=== PATIENT | male | born 1945 | race Caucasian/White ===

== ENCOUNTER 2017-06-21 12:37 | Observation (INO) | payer MEDICARE, OTHER ==
[~2017-06-21] VITALS: Ht 170.2 cm; Wt 80.0 kg
[~2017-06-21 12:37] MED LIST: DEXAMETHASONE SOD PHOS 4 MG/ML VIAL IV ONE; GLYCOPYRROLATE 1 MG/5 ML SYRINGE IV PUSH ONE; LIDOCAINE HCL 1% PF 5 ML AMPULE OTHER ONE; PROPOFOL 200 MG/20 ML AMP IV ONE; ceFAZolin INJ 1,000 MG VIAL IV ONE; ePHEDrine/NS 25 MG/5 ML SYR IV ONE
[2017-06-21 12:46] VITALS: BP 150/84; PULSE 94; RESP 19; TEMP 98.3; O2SAT 94
[2017-06-21] MEDS ORDERED: BUPR100T4 PO (12:55)
[2017-06-21] MEDS ORDERED: OMEP20TA PO (12:55)
[2017-06-21] MEDS ORDERED: LOSA100T PO (12:55)
--- NOTE | 2017-06-21 13:28 | PD ---
Physical Exam Date Seen by Provider: Jun 21, 2017 Time Seen by Provider: 13:26 Narrative 72-year-old male presents the emergency department via ambulance with nail gun injury to the left upper anterior thigh/hip while working on his home. Patient states it was approximately [address] was galvanized steel. He states he might be 2 nails, but is unsure. There is no visible foreign body on the outer surface. Patient has normal sensation, and pulses distally. He is localized to the left upper anterior thigh/hip. Pain is worse with trying to ambulate or bear weight. Patient is unsure of his last tetanus shot. Last ate at 7 AM. Pain is currently 5 out of 10 if not moving. He has no known drug allergies. Data Data Last Documented VS Vital Signs Date Time Temp Pulse Resp B/P (MAP) Pulse Ox O2 Delivery O2 Flow Rate FiO2 06/21/17 14:40 18 97 Room Air 06/21/17 12:50 2.00 06/21/17 12:46 98.3 94 150/84 (106) Orders Orders Basic Metabolic Panel (Bmp) (06/21/17 13:24) Complete Blood Count With Diff (06/21/17 13:24) Prothrombin Time / Inr (Pt) (06/21/17 13:24) Act Partial Throm Time (Ptt) (06/21/17 13:24) Iv Access Insert/Monitor (06/21/17 13:24) Ecg Monitoring (06/21/17 13:24) Oximetry (06/21/17 13:24) NPO (06/21/17 13:24) Sodium Chloride 0.9% Flush (Ns Flush) (06/21/17 13:30) Electrocardiogram (06/21/17 13:24) Chest, Single Ap (06/21/17 13:24) Tetanus/Diphtheria Tox Adult (Tetanus/Di (06/21/17 13:30) Hip, Uni(Ap&Lat) W Ap Pelvis (06/21/17 13:24) Cefazolin 2 Gm Premix (Ancef 2 Gm Premix (06/21/17 14:15) Femur (Ap & Lat/2vws) (06/21/17 14:18) Labs Laboratory Tests Test 06/21/17 11:45 White Blood Count 8.9 TH/MM3 Red Blood Count 5.55 MIL/MM3 Hemoglobin 16.2 GM/DL Hematocrit 48.6 % Mean Corpuscular Volume 87.5 FL Mean Corpuscular Hemoglobin 29.3 PG Mean Corpuscular Hemoglobin Concent 33.4 % Red Cell Distribution Width 16.1 % Platelet Count 151 TH/MM3 Mean Platelet Volume 8.9 FL Neutrophils (%) (Auto) 79.8 % Lymphocytes (%) (Auto) 9.5 % Monocytes (%) (Auto) 9.7 % Eosinophils (%) (Auto) 0.5 % Basophils (%) (Auto) 0.5 % Neutrophils # (Auto) 7.1 TH/MM3 Lymphocytes # (Auto) 0.8 TH/MM3 Monocytes # (Auto) 0.9 TH/MM3 Eosinophils # (Auto) 0.0 TH/MM3 Basophils # (Auto) 0.0 TH/MM3 CBC Comment DIFF FINAL Differential Comment Prothrombin Time 10.8 SEC Prothromb Time International Ratio 1.0 RATIO Activated Partial Thromboplast Time 22.8 SEC Blood Urea Nitrogen 18 MG/DL Creatinine 1.09 MG/DL Random Glucose 98 MG/DL Calcium Level 9.1 MG/DL Sodium Level 138 MEQ/L Potassium Level 3.9 MEQ/L Chloride Level 104 MEQ/L Carbon Dioxide Level 25.6 MEQ/L Anion Gap 8 MEQ/L Estimat Glomerular Filtration Rate 66 ML/MIN MDM Medical Record Reviewed: Yes Supervised Visit with BRIAN: Yes Narrative Course Patient is medically stable at time of exam when seen in the ambulance [facility]. Patient is given tetanus. X-ray of the left hip and pelvis is ordered. IV access is maintained and labs are ordered including CBC, CMP, coagulation studies. CBC is unremarkable. EKG and chest x-ray was ordered for possible preop purposes. X-ray of the pelvis show obvious foreign body in the soft tissues. No mention of bony involvement is noted. Call was placed to Dr. Duff, the radiologist and he recommends a femur lateral view to determine if the nail is indeed in the bone as it was not determined on the previous x-rays. Patient is kept nothing by mouth. Patient is awaiting medical bed placement. Patient is moved to [place] [id number]. Patient discussed with Fidel KAPADIA. Condition: Stable Alex Worthington Jun 21, 2017 13:28
[2017-06-21] MEDS ORDERED: TETANUS/DIPHTHERIA TOXOID ADULT 0.5 ML VIAL IM ONE (13:30)
[2017-06-21] MEDS ORDERED: SODIUM CHLORIDE 0.9% FLUSH 10 ML FLUSH IV FLUSH PRN ×3 (13:30→19:15)
--- NOTE | 2017-06-21 14:13 | RADRPT ---
EXAM DATE/TIME: 06/21/2017 13:53 [facility] COMPARISON: No previous studies available for comparison. INDICATIONS : Shortness of breath. Patient shot a nail into his left leg. MEDICAL HISTORY : Hypertension. Gastroesophageal reflux disease. SURGICAL HISTORY : Cholecystectomy. Total knee replacement, right. ENCOUNTER: Initial ACUITY: 1 day PAIN SCORE: 0/10 LOCATION: Bilateral chest FINDINGS: A single view of the chest demonstrates the lungs to be symmetrically aerated without evidence of mas s, infiltrate or effusion. The cardiomediastinal contours are unremarkable. Osseous structures demo nstrate a small exostosis projecting off the distal left clavicle. CONCLUSION: 1. No acute cardiopulmonary findings. Jean Duff MD on June 21, 2017 at 14:06 Board Certified Radiologist. This report was verified electronically.
--- NOTE | 2017-06-21 14:14 | RADRPT ---
EXAM DATE/TIME: 06/21/2017 13:59 [facility] COMPARISON: CHEST SINGLE AP, June 21, 2017, 13:53. INDICATIONS : Foreign body. Patient shot a nail into his left leg. MEDICAL HISTORY : Hypertension. Gastroesophageal reflux disease. SURGICAL HISTORY : Total knee replacement, right. Cholecystectomy. ENCOUNTER: Initial ACUITY: 1 day PAIN SCORE: 10/10 LOCATION: Left hip. FINDINGS: The examination demonstrates a small radiodense foreign body projecting over the proximal left femur. This is in the subcutaneous soft tissues. The visualized osseous structures are intact. CONCLUSION: 1. Small radiodense foreign body in the subcutaneous soft tissues of the left upper thigh. 2. The osseous structures are intact. Jena Duff MD on June 21, 2017 at 14:11 Board Certified Radiologist. This report was verified electronically.
[2017-06-21] MEDS ORDERED: ceFAZolin 2 GM PREMIX 50 ML IV ONE (14:15)
[2017-06-21 14:23] LABS: AUTOMATED NEUTROPHIL # 7.1 TH/MM3 (1.8-7.7); BASOPHIL % 0.5 % (0.0-2.0); EOSINOPHIL % 0.5 % (0.0-4.0); HEMATOCRIT 48.6 % (39.0-51.0); HEMO FLAGS DIFF FINAL; LYMPH % 9.5 % (9.0-44.0); LYMPHOCYTE # 0.8 TH/MM3 (1.0-4.8); MEAN CELL VOLUME 87.5 FL (80.0-100.0); MEAN CORPUSCULAR HEMOGLOBIN 29.3 PG (27.0-34.0); MEAN CORPUSCULAR HGB CONC 33.4 % (32.0-36.0); MONO % 9.7 % (0.0-8.0); NEUT % 79.8 % (16.0-70.0); PLATELET COUNT 151 TH/MM3 (150-450); RED BLOOD COUNT 5.55 MIL/MM3 (4.50-5.90); RED CELL DISTRIBUTION WIDTH 16.1 % (11.6-17.2); WHITE BLOOD COUNT 8.9 TH/MM3 (4.0-11.0)
[2017-06-21 14:38] LABS: APTT (PATIENT) 22.8 SEC (24.3-30.1); PROTHROMBIN TIME - PATIENT 10.8 SEC (9.8-11.6)
[2017-06-21 14:40] VITALS: RESP 18; O2SAT 97
[2017-06-21 14:46] LABS: BICARBONATE 25.6 MEQ/L (21.0-32.0); POTASSIUM 3.9 MEQ/L (3.5-5.1)
--- NOTE | 2017-06-21 14:46 | PD ---
HPI Chief Complaint: Injury Time Seen by Provider: 14:46 Travel History International Travel<30 days: No Contact w/Intl Traveler<30days: No Traveled to known affect area: No History of Present Illness HPI This patient was initially evaluated by Ortiz Worthington PA-C. Please see his note for those details. 72 YO M presents to the ED via EMS for evaluation after accidentally firing a nail gun into his left hip. The patient has been ambulatory since the event. He endorses 10/10 pain with attempted ROM, pain is 5/10 at rest. He denies numbness , tingling, weakness of the extremity. Tetanus has been updated, labs acquired, Ancef administered. Xrays reveal FB, lateral view pending. Patient has been ordered NPO. Last meal 7 am. PFSH Past Medical History Depression: Yes GERD: Yes Hypertension: Yes Tetanus Vaccination: > 5 Years Influenza Vaccination: No Past Surgical History Cholecystectomy: Yes Social History Alcohol Use: No Tobacco Use: No Substance Use: No Allergies-Medications (Allergen,Severity, Reaction): Coded Allergies: No Known Allergies (Unverified , 06/21/17) Reported Meds & Prescriptions Reported Meds & Active Scripts Active Reported Bupropion HCl 100 Mg Tab 100 Mg PO HS Losartan (Losartan Potassium) 100 Mg Tab 100 Mg PO DAILY Omeprazole 20 Mg Tab 20 Mg PO DAILY Review of Systems Except as stated in HPI: all other systems reviewed are Neg Physical Exam Narrative GENERAL: Well-nourished, well-developed pleasant white male in no acute distress. SKIN: Focused skin assessment warm/dry. Single, 2 mm wound on the lateral aspect of the left hip without active bleeding. HEAD: Normocephalic. EYES: No scleral icterus. No injection or drainage. NECK: Supple, trachea midline. No JVD or lymphadenopathy. CARDIOVASCULAR: Regular rate and rhythm without murmurs, gallops, or rubs. RESPIRATORY: Breath sounds equal bilaterally. No accessory muscle use. GASTROINTESTINAL: Abdomen soft, non-tender, nondistended. MUSCULOSKELETAL: No cyanosis, or edema. FOCUSED LEFT LOWER EXTREMITY EXAM: 2+ DP pulse. Patient is able to wiggle the toes and flex and extend the ankle. Motion of the hip elicits pain. Neurovascularly intact distally. BACK: Nontender without obvious deformity. No CVA tenderness. Data Data Last Documented VS Vital Signs Date Time Temp Pulse Resp B/P (MAP) Pulse Ox O2 Delivery O2 Flow Rate FiO2 06/21/17 14:40 18 97 Room Air 06/21/17 12:50 2.00 06/21/17 12:46 98.3 94 150/84 (106) Orders Orders Basic Metabolic Panel (Bmp) (06/21/17 13:24) Complete Blood Count With Diff (06/21/17 13:24) Prothrombin Time / Inr (Pt) (06/21/17 13:24) Act Partial Throm Time (Ptt) (06/21/17 13:24) Iv Access Insert/Monitor (06/21/17 13:24) Ecg Monitoring (06/21/17 13:24) Oximetry (06/21/17 13:24) NPO (06/21/17 13:24) Sodium Chloride 0.9% Flush (Ns Flush) (06/21/17 13:30) Electrocardiogram (06/21/17 13:24) Chest, Single Ap (06/21/17 13:24) Tetanus/Diphtheria Tox Adult (Tetanus/Di (06/21/17 13:30) Hip, Uni(Ap&Lat) W Ap Pelvis (06/21/17 13:24) Cefazolin 2 Gm Premix (Ancef 2 Gm Premix (06/21/17 14:15) Morphine Inj (Morphine Inj) (06/21/17 15:00) Femur, One View (06/21/17 ) Admit Order (Ed Use Only) (06/21/17 17:03) Labs Laboratory Tests Test 06/21/17 11:45 White Blood Count 8.9 TH/MM3 Red Blood Count 5.55 MIL/MM3 Hemoglobin 16.2 GM/DL Hematocrit 48.6 % Mean Corpuscular Volume 87.5 FL Mean Corpuscular Hemoglobin 29.3 PG Mean Corpuscular Hemoglobin Concent 33.4 % Red Cell Distribution Width 16.1 % Platelet Count 151 TH/MM3 Mean Platelet Volume 8.9 FL Neutrophils (%) (Auto) 79.8 % Lymphocytes (%) (Auto) 9.5 % Monocytes (%) (Auto) 9.7 % Eosinophils (%) (Auto) 0.5 % Basophils (%) (Auto) 0.5 % Neutrophils # (Auto) 7.1 TH/MM3 Lymphocytes # (Auto) 0.8 TH/MM3 Monocytes # (Auto) 0.9 TH/MM3 Eosinophils # (Auto) 0.0 TH/MM3 Basophils # (Auto) 0.0 TH/MM3 CBC Comment DIFF FINAL Differential Comment Prothrombin Time 10.8 SEC Prothromb Time International Ratio 1.0 RATIO Activated Partial Thromboplast Time 22.8 SEC Blood Urea Nitrogen 18 MG/DL Creatinine 1.09 MG/DL Random Glucose 98 MG/DL Calcium Level 9.1 MG/DL Sodium Level 138 MEQ/L Potassium Level 3.9 MEQ/L Chloride Level 104 MEQ/L Carbon Dioxide Level 25.6 MEQ/L Anion Gap 8 MEQ/L Estimat Glomerular Filtration Rate 66 ML/MIN MDM Medical Decision Making Medical Screen Exam Complete: Yes Emergency Medical Condition: Yes Differential Diagnosis open fracture versus retained FB versus need for tetanus immunization versus other Narrative Course This patient was initially evaluated by Ortiz Worthington PA-C. Please see his note for those details. 72 YO M presents to the ED via EMS for evaluation after accidentally firing a nail gun into his left hip. The patient has been ambulatory since the event. He endorses 10/10 pain with attempted ROM, pain is 5/10 at rest. He denies numbness , tingling, weakness of the extremity. Tetanus has been updated, labs acquired, Ancef administered. Xrays reveal FB, lateral view pending. Patient has been ordered NPO. Last meal 7 am. Vitals reviewed. Physical exam reveals a single 2 mm puncture wound on the lateral aspect of the left hip without active bleeding. Patient has a palpable DP pulse and is neurovascularly intact distally. He was administered 4 mg of morphine IV. EKG rate 74, sinus rhythm. NH interval 177. QRS 128. QTC 393. RBBB. LAD. No acute ST changes. Reviewed by Dr. Montero. CXR: No acute cardiopulmonary disease. No concerning abnormalities of CBC, BMP, coags. Xrays reveal the nail is imbedded in the femur. I spoke with Dr. Mai,on-call orthopedist, who plans surgery tonight pending availability of the OR. The patient is agreeable to this plan. I spoke with Dr. Delvalle who agrees to accept the patient to the medicine service. Please see medicine and orthopedic notes for disposition. Condition: Stable Lorraine Taylor Jun 21, 2017 14:46
[2017-06-21] MEDS ORDERED: MORPHINE SULFATE 4 MG/ML INJ IV PUSH ONE (15:00)
--- NOTE | 2017-06-21 16:25 | RADRPT ---
EXAM DATE/TIME: 06/21/2017 15:36 [facility] COMPARISON: HIP LEFT (AP&LAT 2/3VWS) W AP PELVIS, June 21, 2017, 13:59. FEMUR LEFT (AP & LAT/2VWS), June 062016, 15:25. INDICATIONS : true lateral to rule out if foreign body is in the bone MEDICAL HISTORY : None. SURGICAL HISTORY : None. ENCOUNTER: Initial ACUITY: 1 day PAIN SCORE: 7/10 LOCATION: Left femur FINDINGS: A true lateral view of the left femur shows a metallic foreign body consistent with a nail overlying the proximal femoral metaphysis. On this and the AP view the nail projects over the bone therefore co ncerning for impaction within the bone. CONCLUSION: Foreign body felt to be within the bone. Sandoval Gutierres Jr., MD on June 21, 2017 at 16:21 Board Certified Radiologist. This report was verified electronically.
[2017-06-21] MEDS: SODIUM CHLOR 0.9% 1000 ML INJ 1,000 ML IV SCH (17:03)
[2017-06-21] MEDS ORDERED: ONDANSETRON HCL 4 MG/2 ML VIAL IVP PRN (17:15)
[2017-06-21] MEDS ORDERED: MAGNESIUM HYDROXIDE SUSP 30 ML CUP PO PRN (17:15)
[2017-06-21] MEDS ORDERED: ACETAMINOPHEN/HYDROcodone 325 MG/5 MG TAB PO PRN ×2 (17:15→19:15)
[2017-06-21] MEDS ORDERED: ACETAMINOPHEN/HYDROcodone 325 MG/10 MG TAB PO PRN (17:15)
[2017-06-21] MEDS ORDERED: NALOXONE HCL 0.4 MG/ML AMP IV PUSH PRN (17:15)
[2017-06-21] MEDS ORDERED: ACETAMINOPHEN 1000 MG/100 ML 0 ML IV ONE (17:49)
[2017-06-21] MEDS ORDERED: GENTAMICIN SULFATE 80 MG/2 ML VIAL ONE (17:55)
--- NOTE | 2017-06-21 18:05 | HHI.HP ---
HPI Service [facility] Primary [facility] Physician Unknown Admission Diagnosis foreign body left femur Diagnoses: Chief Complaint: Left femur shot accidentally by nail gun Travel History International Travel<30 Days: No Contact w/Intl Traveler <30 Da: No Traveled to Known Affected Are: No History of Present Illness Written by Enid Garcia, acting as scribe for Dr. Delvalle on 06/21/17 at 17: 49. Patient is a 72-year-old male with primary medical history of hypertension, GERD , depression who came into the hospital after accidentally shooting his left hip with a nail gun while doing his fence. Patient states that the nail gun has been mishooting and he was trying to fix it and he accidentally turned around the wrong way hitting his left hip. He thought that he did not hit himself because he did not feel anything but when he checked his left hip area she saw the dimpling on his skin and skin became swollen. X-ray showed foreign body felt to be within the bone. Hip and pelvis x-ray showed 1. Small radiodense foreign body in the subcutaneous soft tissue of the left upper thigh. 2. Nausea structures are intact. Patient states that after he was given morphine he is doing well with pain management. Pain is not described as 3/10 nonradiating, aggravated by movement , relieved by pain medication. Denies SOB/ dyspnea. Denies chest pain, palpitations, headaches, dizziness. Denies fevers, chills, n/v/d. Review of Systems Except as stated in HPI: all other systems reviewed are Neg Past Family Social History Past Medical History HTN GERD Depression Low testosterone Past Surgical History Right knee replacement Cholecystectomy Reported Medications Reported Meds & Active Scripts Active Reported Bupropion HCl 100 Mg Tab 100 Mg PO HS Losartan (Losartan Potassium) 100 Mg Tab 100 Mg PO DAILY Omeprazole 20 Mg Tab 20 Mg PO DAILY Allergies: Coded Allergies: No Known Allergies (Unverified , 06/21/17) Active Ordered Medications Current Medications Medications (Trade) Dose Ordered Sig/Katelynn Route Start Time Stop Time Status Last Admin (NS Flush) 2 ml UNSCH PRN IV FLUSH 06/21/17 13:30 06/21/17 15:00 Sodium Chloride 1,000 ml @ 100 mls/hr Q10H IV 06/21/17 17:03 (NS Flush) 2 ml UNSCH PRN IV FLUSH 06/21/17 17:15 (NS Flush) 2 ml BID IV FLUSH 06/21/17 21:00 (Zofran Inj) 4 mg Q6H PRN IVP 06/21/17 17:15 (Whitman 5-325 Mg) 1 tab Q4H PRN PO 06/21/17 17:15 (Whitman 10-325 Mg) 1 tab Q4H PRN PO 06/21/17 17:15 (Narcan Inj) 0.4 mg UNSCH PRN IV PUSH 06/21/17 17:15 (Milk Of Magnlucy Liq) 30 ml Q12H PRN PO 06/21/17 17:15 Family History Family history of kidney problems, stroke, heart disease where in he believes that it is because of not taking care of themselves. Denies any family history of cancer, blood disorders Social History Occasional alcohol use Former smoker but has not smoked since 1975 Denies any illicit drug use Physical Exam Vital Signs Vital Signs Date Time Temp Pulse Resp B/P (MAP) Pulse Ox O2 Delivery O2 Flow Rate FiO2 06/21/17 14:40 18 97 Room Air 06/21/17 12:50 Nasal Cannula 2.00 06/21/17 12:46 98.3 94 19 150/84 (106) 94 Physical Exam GENERAL: This is a well-nourished, well-developed patient, in no apparent distress. SKIN: No rashes, ecchymoses or lesions. Cool and dry. HEAD: Normocephalic. No temporal or scalp tenderness. EYES: Pupils equal round and reactive. Extraocular motions intact. No scleral icterus. No injection or drainage. ENT: Nose without bleeding. Throat without erythema. Uvula midline. Airway patent. NECK: Trachea midline. Supple. CARDIOVASCULAR: Regular rate and rhythm without murmurs, gallops, or rubs. RESPIRATORY: Clear to auscultation. Breath sounds equal bilaterally. No wheezes , rales, or rhonchi. GASTROINTESTINAL: Abdomen soft, non-tender, nondistended. Bowel sounds active 4. MUSCULOSKELETAL: Extremities without clubbing, cyanosis, left hip are with trace edema, mild ecchymoses. No joint tenderness, effusion, or edema noted. NEUROLOGICAL: Awake and alert. Cranial nerves II through XII intact. Motor and sensory grossly within normal limits. Normal speech. Laboratory Laboratory Tests Test 06/21/17 11:45 White Blood Count 8.9 Red Blood Count 5.55 Hemoglobin 16.2 Hematocrit 48.6 Mean Corpuscular Volume 87.5 Mean Corpuscular Hemoglobin 29.3 Mean Corpuscular Hemoglobin Concent 33.4 Red Cell Distribution Width 16.1 Platelet Count 151 Mean Platelet Volume 8.9 Neutrophils (%) (Auto) 79.8 Lymphocytes (%) (Auto) 9.5 Monocytes (%) (Auto) 9.7 Eosinophils (%) (Auto) 0.5 Basophils (%) (Auto) 0.5 Neutrophils # (Auto) 7.1 Lymphocytes # (Auto) 0.8 Monocytes # (Auto) 0.9 Eosinophils # (Auto) 0.0 Basophils # (Auto) 0.0 CBC Comment DIFF FINAL Differential Comment Prothrombin Time 10.8 Prothromb Time International Ratio 1.0 Activated Partial Thromboplast Time 22.8 Blood Urea Nitrogen 18 Creatinine 1.09 Random Glucose 98 Calcium Level 9.1 Sodium Level 138 Potassium Level 3.9 Chloride Level 104 Carbon Dioxide Level 25.6 Anion Gap 8 Estimat Glomerular Filtration Rate 66 Result Diagram: 06/21/17 1145 06/21/17 1145 Imaging Last Impressions Hip and Pelvis X-Ray 06/21/17 1324 Signed Impressions: Service Date/Time: Wednesday, June 21, 2017 13:59 - CONCLUSION: 1. Small radiodense foreign body in the subcutaneous soft tissues of the left upper thigh. 2. The osseous structures are intact. Jean Duff MD Chest X-Ray 06/21/17 1324 Signed Impressions: Service Date/Time: Wednesday, June 21, 2017 13:53 - CONCLUSION: 1. No acute cardiopulmonary findings. Jean Duff MD Femur X-Ray 06/21/17 0000 Signed Impressions: Service Date/Time: Wednesday, June 21, 2017 15:36 - CONCLUSION: Foreign body felt to be within the bone. MD Maria Victoria Rutherford Jr. VTE Risk Assessment Caprini VTE Risk Assessment: Mod/High Risk (score >= 2) Caprini Risk Assessment Model Point Value = 1 Point Value = 2 Point Value = 3 Point Value = 5 Age 41-60 Minor surgery BMI > 25 kg/m2 Swollen legs Varicose veins or History of unexplained or recurrent spontaneous Oral contraceptives or hormone replacement Sepsis (< 1 month) Serious lung disease, including pneumonia (< 1 month) Abnormal pulmonary function Acute myocardial infarction Congestive heart failure (< 1 month) History of inflammatory bowel disease Medical patient at bed rest Age 61-74 Arthroscopic surgery Major open surgery (> 45 min) Laparoscopic surgery (> 45 min) Malignancy Confined to bed (> 72 hours) Immobilizing plaster cast Central venous access Age >= 75 History of VTE Family history of VTE Factor V Leiden Prothrombin [id number] Lupus anticoagulant Anticardiolipin antibodies Elevated serum homocysteine Heparin-induced thrombocytopenia Other congenital or acquired thrombophilia Stroke (< 1 month) Elective arthroplasty Hip, pelvis, or leg fracture Acute spinal cord injury (< 1 month) Prophylaxis Regimen Total Risk Factor Score Risk Level Prophylaxis Regimen 0-1 Low Early ambulation 2 Moderate Order ONE of the following: *Sequential Compression Device (SCD) *Heparin 5000 units SQ BID 3-4 Higher Order ONE of the following medications: *Heparin 5000 units SQ TID *Enoxaparin/Lovenox 40 mg SQ daily (WT < 150 kg, CrCl > 30 mL/min) *Enoxaparin/Lovenox 30 mg SQ daily (WT < 150 kg, CrCl > 10-29 mL/min) *Enoxaparin/Lovenox 30 mg SQ BID (WT < 150 kg, CrCl > 30 mL/min) AND/OR *Sequential Compression Device (SCD) 5 or more Highest Order ONE of the following medications: *Heparin 5000 units SQ TID (Preferred with Epidurals) *Enoxaparin/Lovenox 40 mg SQ daily (WT < 150 kg, CrCl > 30 mL/min) *Enoxaparin/Lovenox 30 mg SQ daily (WT < 150 kg, CrCl > 10-29 mL/min) *Enoxaparin/Lovenox 30 mg SQ BID (WT < 150 kg, CrCl > 30 mL/min) AND *Sequential Compression Device (SCD) Assessment and Plan Problem List: (1) HTN (hypertension) ICD Code: I10 - Essential (primary) hypertension Status: Chronic (2) GERD (gastroesophageal reflux disease) ICD Code: K21.9 - Gastro-esophageal reflux disease without esophagitis Status: Chronic (3) Depression ICD Code: F32.9 - Major depressive disorder, single episode, unspecified Status: Chronic (4) Foreign body in left lower extremity ICD Code: S80.852A - Superficial foreign body, left lower leg, initial encounter Status: Acute Assessment and Plan Patient is a 72-year-old male with primary medical history of hypertension, GERD , depression who came into the hospital after accidentally shooting his left hip with a nail gun while doing his fence. Foreign body in the Left Femur - Accidental shooting of nail gun on the left femur - Tetanus shot - IV Cefazolin - Morphine IV for pain - Consulted Dr. Mai for surgical intervention - NPO for now if procedure to take place HTN - Monitor BP trend - May restart meds in AM GERD - Pantoprazole Depression - May restart home meds tomorrow DVT Prop SCD Code Status Full Code Discussed Condition With Patient, , ED Attending Enid Sharp Jun 21, 2017 18:04
[2017-06-21] MEDS ORDERED: ACETAMINOPHEN 1000 MG/100 ML 100 ML IV ONE (18:23)
[2017-06-21] MEDS ORDERED: ceFAZolin INJ 1,000 MG VIAL IV ONE (18:43)
[2017-06-21] MEDS ORDERED: GENTAMICIN SULFATE 80 MG/2 ML VIAL IV ONE (18:45)
--- NOTE | 2017-06-21 19:06 | HHI.PR ---
cc: Cecile Mai MD Immediate Post Op Note Procedure Date: Jun 21, 2017 Pre Op Diagnosis: Foreign body left thigh and femur Post Op Diagnosis: as above Surgeon: Cecile Mai Sales Merchandiser(s): food service assistant Procedure: Removal of foreign body left thigh and femur Findings: Full finishing nail removed. Complications: none Specimen(s) removed: finishing nail Estimated blood loss: none Anesthesia: General Drains: None Patient to: PACU Patient Condition: Good Date/Time of Procedure: SEE SURGICAL CARE RECORD Cecile Mai MD Jun 21, 2017 19:06
[2017-06-21] MEDS ORDERED: DO NOT ADM ANY ANTICOAGULANT DRUGS PRN (19:10)
[2017-06-21] MEDS ORDERED: HYDR-3516 PO (19:10)
[2017-06-21] MEDS ORDERED: DOXY100C PO (19:10)
--- NOTE | 2017-06-21 19:13 | HHI.DS ---
Discharge Summary Admission Date Jun 21, 2017 at 17:05 Discharge Date: Jun 21, 2017 Admitting Diagnosis Foreign body left thigh Diagnosis: (1) Foreign body in left lower extremity Diagnosis: Principal ICD Codes: S80.852A - Superficial foreign body, left lower leg, initial encounter Status: Acute Procedures Removal of foreign body left thigh/femur Brief History This is a 72 year old male patient with finishing nail shot into anterior lateral thigh this afternoon when trying to build fence. Denies other injuries. No numbness, tingling, weakness. Patient received antibiotics and tetanus in the ED. Taken to OR for removal of foreign body without complication. CBC/BMP: 06/21/17 1145 06/21/17 1145 Significant Findings Laboratory Tests Test 06/21/17 11:45 Neutrophils (%) (Auto) 79.8 % (16.0-70.0) Monocytes (%) (Auto) 9.7 % (0.0-8.0) Lymphocytes # (Auto) 0.8 TH/MM3 (1.0-4.8) Activated Partial Thromboplast Time 22.8 SEC (24.3-30.1) Estimat Glomerular Filtration Rate 66 ML/MIN (>89) Hospital Course OR for removal of foreign body without complication. Plan for discharge home from PACU Pt Condition on Discharge: Good Discharge Disposition: Discharge Home Discharge Instructions Diet Instructions: As Tolerated, No Restrictions Activities You Can Perform: Weight Bearing as Cecile Meehan MD Jun 21, 2017 19:13
[2017-06-21] MEDS ORDERED: MORPHINE SULFATE 4 MG/ML INJ IV PUSH PRN (19:15)
--- NOTE | 2017-06-21 19:39 | RADRPT ---
EXAM DATE/TIME: 06/21/2017 18:55 [facility] COMPARISON: HIP LEFT (AP&LAT 2/3VWS) W AP PELVIS, June 21, 2017, 13:59. INDICATIONS : Left hip foreign body removal. OR. MEDICAL HISTORY : None. SURGICAL HISTORY : None. ENCOUNTER: Initial ACUITY: 1 day PAIN SCORE: Non-responsive. LOCATION: Left hip FINDINGS: Examination of the hip demonstrates no evidence of fracture or dislocation. Bone mineralization is n ormal. No foreign body is identified. CONCLUSION: Negative examination specifically the linear metallic foreign body in soft tissues is absent Jerel Car MD on June 21, 2017 at 19:37 Board Certified Radiologist. This report was verified electronically.
[2017-06-21] MEDS ORDERED: BUPIVACAINE/EPINEPHRINE 0.5% PF 10 ML VIAL ONE (20:20)
[2017-06-21] MEDS ORDERED: SODIUM CHLORIDE 0.9% FLUSH 10 ML FLUSH IV FLUSH SCH ×2 (21:00)
[2017-06-21] MEDS ORDERED: ceFAZolin 1,000 MG/NS 100 ML IV ONE ×2 (21:00)
[2017-06-21 21:28] VITALS: BP 140/79; PULSE 66; RESP 18; TEMP 97.9; O2SAT 95
[2017-06-22 00:23] VITALS: BP 131/60; PULSE 66; RESP 18; TEMP 97.9; O2SAT 96
[2017-06-22] MEDS: SODIUM CHLOR 0.9% 1000 ML INJ 1,000 ML IV SCH (02:43)
[2017-06-22 02:59] VITALS: BP 128/69; PULSE 64; RESP 18; TEMP 97.7; O2SAT 95
[2017-06-22 08:00] VITALS: BP 139/68; PULSE 70; RESP 20; TEMP 98.3; O2SAT 94
--- NOTE | 2017-06-22 08:40 | HHI.PR ---
Subjective Remarks Follow up for left hip foreign body s/p removal. The patient reports feeling better today. He was able to ambulate his room without difficulty. He reports some mild soreness at the site of the injury. Denies fevers/chills. Some bloody drainage on bandage overnight. He has no other medical complaints at this time. Objective Vitals Vital Signs Date Time Temp Pulse Resp B/P (MAP) Pulse Ox O2 Delivery O2 Flow Rate FiO2 06/22/17 08:00 98.3 70 20 139/68 (91) 94 06/22/17 02:59 97.7 64 18 128/69 (88) 95 06/22/17 00:23 97.9 66 18 131/60 (83) 96 06/21/17 21:28 97.9 66 18 140/79 (99) 95 06/21/17 20:15 83 18 146/78 (100) 96 Room Air 06/21/17 20:02 75 20 156/78 (104) 96 Room Air 06/21/17 19:30 79 20 161/83 (109) 99 Room Air 06/21/17 19:15 82 18 161/76 (104) 100 Nasal Cannula 2 06/21/17 19:15 97.7 84 16 168/85 (112) 99 Nasal Cannula 2 06/21/17 14:40 18 97 Room Air 06/21/17 12:50 Nasal Cannula 2.00 06/21/17 12:46 98.3 94 19 150/84 (106) 94 I/O 06/21/17 06/21/17 06/21/17 06/22/17 06/22/17 06/22/17 07:00 15:00 23:00 07:00 15:00 23:00 Intake Total 900 ml Output Total 5 ml Balance 895 ml Intake IV Total 200 ml Other 700 ml Output Estimated Blood Loss 5 ml Result Diagram: 06/21/17 1145 06/21/17 1145 Imaging Last Impressions Hip and Pelvis X-Ray 06/21/171323 Signed Impressions: Service Date/Time: Wednesday, June 21, 2017 13:59 - CONCLUSION: 1. Small radiodense foreign body in the subcutaneous soft tissues of the left upper thigh. 2. The osseous structures are intact. Jean Duff MD Chest X-Ray 06/21/171323 Signed Impressions: Service Date/Time: Wednesday, June 21, 2017 13:53 - CONCLUSION: 1. No acute cardiopulmonary findings. Jean Duff MD Hip X-Ray 06/21/17 0000 Signed Impressions: Service Date/Time: Wednesday, June 21, 2017 18:55 - CONCLUSION: Negative examination specifically the linear metallic foreign body in soft tissues is absent Jerel Car MD Femur X-Ray 06/21/17 0000 Signed Impressions: Service Date/Time: Wednesday, June 21, 2017 15:36 - CONCLUSION: Foreign body felt to be within the bone. Sandoval Gutierres Jr., MD Objective Remarks GENERAL: Well-nourished, well-developed pleasant elderly male patient in [place]. SKIN: Warm and dry. No rash. HEENT: Normocephalic. Atraumatic.Pupils equal and round. Mucous membranes pink and moist. CARDIOVASCULAR: Regular rate and rhythm. S1, S2 noted. No murmur appreciated. RESPIRATORY: No accessory muscle use. Clear to auscultation. Breath sounds equal bilaterally. GASTROINTESTINAL: Abdomen soft, non-tender, nondistended. Normoactive bowel sounds x4. MUSCULOSKELETAL: No obvious deformities. Extremities without clubbing, cyanosis , or edema. Left anterolateral hip with puncture wound, covered with dressing, CDI. NEUROLOGICAL: Awake and alert. No obvious cranial nerve deficits. Motor grossly within normal limits. Normal speech. PSYCHIATRIC: Appropriate mood and affect; insight and judgment normal. Medications and IVs Current Medications Medications (Trade) Dose Ordered Sig/Katelynn Route Start Time Stop Time Status Last Admin Sodium Chloride 1,000 ml @ 100 mls/hr Q10H IV 06/21/17 17:03 (Zofran Inj) 4 mg Q6H PRN IVP 06/21/17 17:15 ([place] 10-325 Mg) 1 tab Q4H PRN PO 06/21/17 17:15 (Narcan Inj) 0.4 mg UNSCH PRN IV PUSH 06/21/17 17:15 (Milk Of Magnesia Liq) 30 ml Q12H PRN PO 06/21/17 17:15 (NS Flush) 2 ml BID IV FLUSH 06/21/17 21:00 06/21/17 21:25 (NS Flush) 2 ml UNSCH PRN IV FLUSH 06/21/17 19:15 (Morphine Inj) 2 mg Q4H PRN IV PUSH 06/21/17 19:15 ([place] 5-325 Mg) 1 tab Q4H PRN PO 06/21/17 19:15 Miscellaneous Information ALL NURSING DEPARTME... UNSCH PRN .XX 06/21/17 19:10 06/22/17 19:09 A/P Problem List: (1) HTN (hypertension) ICD Code: I10 - Essential (primary) hypertension Status: Chronic (2) GERD (gastroesophageal reflux disease) ICD Code: K21.9 - Gastro-esophageal reflux disease without esophagitis Status: Chronic (3) Depression ICD Code: F32.9 - Major depressive disorder, single episode, unspecified Status: Chronic (4) Foreign body in left lower extremity ICD Code: S80.852A - Superficial foreign body, left lower leg, initial encounter Status: Acute Assessment and Plan 72-year-old male with primary medical history of hypertension, GERD, depression who came into the hospital after accidentally shooting his left hip with a nail gun while doing his fence. Foreign body in the Left Femur: s/p Accidental shooting of nail gun on the left femur. Given tetanus vaccination in the ED. Antibiotics with IV Ancef given. IV morphine prn pain. Consulted orthopedics, seen by Dr. Mai, patient was taken to OR for foregin body removal. Patient's symptoms much improved, ambulating well. Cleared for discharge by ortho. HTN: Chronic, stable. Monitor BP trend. Restart home medications. GERD: Chronic, stable. Pantoprazole Depression: Chronic, stable. Restart home medications. DVT Prophylaxis: ambulation, SCDs Discharge Planning Discharge patient to home Condition on discharge: Improved Heart Healthy Diet as tolerated Ad Vania activity Rx written: prescriptions provided by ortho: doxycycline 100mg bid #14, Lortab 5 /325mg q4h prn pain #60 Follow-up with primary care physician within [address] Mai in 2 weeks Minerva Allen PA-C Jun 22, 2017 8:40 am
[2017-06-22 09:08] LABS: BASOPHIL % 0.1 % (0.0-2.0); HEMATOCRIT 48.8 % (39.0-51.0); HEMO FLAGS DIFF FINAL; LYMPHOCYTE # 0.5 TH/MM3 (1.0-4.8); MEAN CORPUSCULAR HEMOGLOBIN 29.6 PG (27.0-34.0); MEAN CORPUSCULAR HGB CONC 33.6 % (32.0-36.0); NEUT % 89.9 % (16.0-70.0); PLATELET COUNT 182 TH/MM3 (150-450); RED BLOOD COUNT 5.54 MIL/MM3 (4.50-5.90); WHITE BLOOD COUNT 8.9 TH/MM3 (4.0-11.0)
[2017-06-22 09:24] LABS: ANION GAP 10 MEQ/L (5-15); AST (GOT) 20 U/L (15-37); BICARBONATE 25.1 MEQ/L (21.0-32.0); BLOOD UREA NITROGEN 18 MG/DL (7-18); CHLORIDE 100 MEQ/L (98-107); GLOMERULAR FILTRATION RATE 70 ML/MIN (>89); SODIUM (NA) 135 MEQ/L (136-145)
[2017-06-22 09:26] LABS: ALT (GPT) 31 U/L (12-78)
[2017-06-22 09:29] LABS: ALKALINE PHOSPHATASE 50 U/L (45-117); TOTAL BILIRUBIN ADULT 0.8 MG/DL (0.2-1.0)
--- NOTE | 2017-06-22 09:48 | PD.ORT.PN ---
Subjective Subjective Remarks Doing well this morning. Minimal discomfort. No fevers, chills, nausea or vomiting Objective Vitals Vital Signs Date Time Temp Pulse Resp B/P (MAP) Pulse Ox O2 Delivery O2 Flow Rate FiO2 06/22/17 08:00 98.3 70 20 139/68 (91) 94 06/22/17 02:59 97.7 64 18 128/69 (88) 95 06/22/17 00:23 97.9 66 18 131/60 (83) 96 06/21/17 21:28 97.9 66 18 140/79 (99) 95 06/21/17 20:15 83 18 146/78 (100) 96 Room Air 06/21/17 20:02 75 20 156/78 (104) 96 Room Air 06/21/17 19:30 79 20 161/83 (109) 99 Room Air 06/21/17 19:15 82 18 161/76 (104) 100 Nasal Cannula 2 06/21/17 19:15 97.7 84 16 168/85 (112) 99 Nasal Cannula 2 06/21/17 14:40 18 97 Room Air 06/21/17 12:50 Nasal Cannula 2.00 06/21/17 12:46 98.3 94 19 150/84 (106) 94 I/O 06/21/17 06/21/17 06/21/17 06/22/17 06/22/17 06/22/17 07:00 15:00 23:00 07:00 15:00 23:00 Intake Total 900 ml Output Total 5 ml Balance 895 ml Intake IV Total 200 ml Other 700 ml Output Estimated Blood Loss 5 ml Result Diagram: 06/22/17 0726 06/22/17 07 Other Results Laboratory Tests Test 06/21/17 11:45 Prothromb Time International Ratio 1.0 RATIO Prothrombin Time 10.8 SEC (9.8-11.6) Imaging Last 24 hours Impressions Hip and Pelvis X-Ray 06/21/171323 Signed Impressions: Service Date/Time: Wednesday, June 21, 2017 13:59 - CONCLUSION: 1. Small radiodense foreign body in the subcutaneous soft tissues of the left upper thigh. 2. The osseous structures are intact. Jean Duff MD Chest X-Ray 06/21/171323 Signed Impressions: Service Date/Time: Wednesday, June 21, 2017 13:53 - CONCLUSION: 1. No acute cardiopulmonary findings. Jean Duff MD Procedures Removal of foreign body left thigh/femur Objective Remarks Awake, alert, NAD LLE: dressing in place with minimal drainage. NVI distally Assessment & Plan Problem List: (1) Foreign body in left lower extremity ICD Codes: S80.852A - Superficial foreign body, left lower leg, initial encounter Status: Acute Assessment and Plan POD#1 s/p removal of foreign body left thigh/femur 1. WBAT LLE 2. Dressing changes daily to start this evening or tomorrow 3. 7 day course of doxy 4. Follow-up in [address] Mai. Discharge home today Cecile Mai MD Jun 22, 2017 09:48
--- NOTE | 2017-06-22 21:37 | EKG ---
Date Performed: 06/21/2017 Time Performed: 14:54:08 PTAGE: 72 years EKG: Sinus rhythm RIGHT BUNDLE BRANCH BLOCK MODERATE VOLTAGE CRITERIA FOR LVH, CONSIDER NORMAL VARIANT ABNORMAL ECG NO PREVIOUS TRACING DOCTOR: Uzair Ridley Interpretating Date/Time 06/22/2017 21:35:25
== END 2017-06-22 10:21 | disposition home or self-care (01) ==
LOC: NEPC 12:37 → NEDA 17:05 → INTOOBSV 17:05 → NEPFCDU 20:50
PROVIDERS: ADMIT Internal Medicine; ATTEND Internal Medicine
DX: S71.142A Puncture wound with foreign body, left thigh, initial encounter (principal); W29.4XXA Contact with nail gun, initial encounter; Z23 Encounter for immunization; F32.9 Major depressive disorder, single episode, unspecified; K21.9 Gastro-esophageal reflux disease without esophagitis; I10 Essential (primary) hypertension; Z79.899 Other long term (current) drug therapy
CPT/HCPCS: 00400; 10120; 71010; 73501; 73502; 73551; 76000; 80048; 80053; 85025; 85610; 85730; 90471; 90714; 93005; 96365; 96366; 96375; 99285; G0378; J0131; J0690; J1100; J1580; J2270; J3010